=== PATIENT | female | born 1985 | race Caucasian/White ===

== ENCOUNTER 2017-11-08 11:31 | Inpatient (IN) ==
[2017-11-10 10:57] VITALS: BP 121/73
== END 2017-11-10 14:35 | disposition home or self-care (01) | DRG 775 ==
LOC: N.LDOUT 11:31 → N.LD 11:33 → N.OB 20:25
PROVIDERS: ADMIT Obstetrics & Gynecology; ATTEND Obstetrics & Gynecology